=== PATIENT | female | born 1955 | race Two or more races ===

== ENCOUNTER 2019-11-04 16:46 | Emergency (ER) | payer OTHER ==
[~2019-11-04] VITALS: Ht 157.5 cm; Wt 65.4 kg
[2019-11-04] MEDS ORDERED: ONDANSETRON PF 4 MG/2 ML VIAL. IV ONE (17:15)
[2019-11-04] MEDS ORDERED: IV NORMAL SALINE 1000ML BAG 1,000 ML IV ONE (17:15)
[2019-11-04] MEDS ORDERED: fentaNYL PF VIAL 100 MCG/2 ML VIAL IV ONE (17:15)
[2019-11-04 17:17] LABS: BASO % 0 % (0-3); EOS # 0.1 x10^3/uL (0.0-0.7); EOS % 1 % (0-3); HEMOGLOBIN 14.3 g/dL (12.0-15.5); LYMPH # 2.7 x10^3/uL (1.0-4.8); LYMPH % 36 % (24-48); MEAN CORPUSCULAR HEMOGLOBIN 29 pg (25-35); MEAN CORPUSCULAR HGB CONC 35 g/dL (31-37); MEAN CORPUSCULAR VOLUME 84 fL (79-100); MONO # 1.5 x10^3/uL (0.0-1.1); MONO % 20 % (0-9); NEUT # 3.2 x10^3/uL (1.8-7.7); NEUT % 43 % (31-73); PLATELET COUNT 193 x10^3/uL (140-400); RED CELL DISTRIBUTION WIDTH 13.2 % (11.5-14.5); WHITE BLOOD COUNT 7.4 x10^3/uL (4.0-11.0)
[2019-11-04 17:19] LABS: BILIRUBIN,URINE NEGATIVE (NEG); CLARITY,URINE CLEAR; COLOR,URINE YELLOW; NITRITE,URINE NEGATIVE (NEG); PH,URINE 6.5 (<5.0-8.0); PROTEIN,URINE NEGATIVE (NEG-TRACE)
[2019-11-04 17:24] LABS: CALCIUM 8.9 mg/dL (8.5-10.1); CREATININE 0.8 mg/dL (0.6-1.0); POTASSIUM 3.5 mmol/L (3.5-5.1)
[2019-11-04 17:27] LABS: BACTERIA,URINE MODERATE /HPF (0-FEW); RBC,URINE 0 /HPF (0-2); SQUAMOUS EPITHELIAL CELL,UR MANY /LPF; WBC,URINE >40 /HPF (0-4)
[2019-11-04 17:30] LABS: ALBUMIN 4.2 g/dL (3.4-5.0); ALBUMIN/GLOBULIN RATIO 1.2 (1.0-1.7); MAGNESIUM 2.1 mg/dL (1.8-2.4); TOTAL BILIRUBIN 0.3 mg/dL (0.2-1.0); TOTAL PROTEIN 7.6 g/dL (6.4-8.2)
[2019-11-04] MEDS ORDERED: IOHEXOL 300 MG/ML 100ML VIAL. IV ONE (17:30)
--- NOTE | 2019-11-04 17:32 | PHYS DOC ---
Past Medical History Past Medical History: Diabetes-Type II Past Surgical History: Cholecystectomy, Other Additional Past Surgical Histo: left clavicle, L OVARY REMOVED Smoking Status: Never Smoker Alcohol Use: None General Adult EDM: Chief Complaint: ABDOMINAL PAIN HPI: HPI: Patient is a 64 year old female, accompanied by her family member, who presents to the ER with complaints of right lower quadrant pain that that began 5 days ago. Patient was seen at her doctor's office today and was sent into the emergency department to rule out appendicitis. Patient denies any fever, nausea , vomiting, diarrhea, dysuria, hematuria, increased urinary frequency, back pain, CVA tenderness, chest pain, applications, cough, shortness of breath, vaginal bleeding, or vaginal discharge. Patient's last bowel movement was this morning and it was normal, she denies any blood in her stool. Patient describes the pain as a constant sharp pain in her R lower abdomen and rates it 10 out of 10, patient has been taking naproxen at home with no relief of her symptoms. She reports that the pain is worse with palpation and rotation of her right leg. Review of Systems: Review of Systems: Constitutional: Denies fever or chills. [] Eyes: Denies change in visual acuity. [] HENT: Denies nasal congestion or sore throat. [] Respiratory: Denies cough or shortness of breath. [] Cardiovascular: Denies chest pain or edema. [] GI: Denies nausea, vomiting, bloody stools or diarrhea, see HPI. [] : Denies dysuria. [] Musculoskeletal: Denies back pain, CVA tenderness or joint pain. [] Integument: Denies rash. [] Neurologic: Denies headache, focal weakness or sensory changes. [] Lymphatic: Denies swollen glands. [] Psychiatric: Denies depression or anxiety. [] Heart Score: Risk Factors: Risk Factors: DM, Current or recent (<one month) smoker, HTN, HLP, family history of CAD, obesity. Risk Scores: Score 0 - 3: 2.5% MACE over next 6 weeks - Discharge Home Score 4 - 6: 20.3% MACE over next 6 weeks - Admit for Clinical Observation Score 7 - 10: 72.7% MACE over next 6 weeks - Early Invasive Strategies Current Medications: Current Medications Medications (Trade) Dose Ordered Sig/[place] Start Time Stop Time Status Last Admin Dose Admin Fentanyl Citrate (Fentanyl 2ml Vial) 50 mcg 1X ONCE 11/04/19 17:15 11/04/19 17:16 DC Ondansetron HCl (Zofran) 4 mg 1X ONCE 11/04/19 17:15 11/04/19 17:16 DC Sodium Chloride 1,000 ml @ 1,000 mls/hr 1X ONCE 11/04/19 17:15 11/04/19 18:14 Allergies: Allergies: Allergies Coded Allergies Type Severity Reaction Last Updated Verified No Known Drug Allergies 11/04/19 No Physical Exam: PE: Constitutional: Well developed, well nourished, no acute distress, non-toxic appearance. [] HENT: Normocephalic, atraumatic, bilateral external ears normal, nose normal. [] Eyes: PERRLA, EOMI, conjunctiva normal, no discharge. [] Neck: Normal range of motion, no stridor. [] Cardiovascular: Heart rate regular rhythm Lungs & Thorax: Lungs clear in all lew, respirations even and unlabored, no retractions, no respiratory distress Abdomen: soft, flat not distended. Bowel sounds are active in all 4 quadrants, right lower quadrant pain with palpation, no rebound tenderness, positive McBurney point tenderness, positive obturator sign, negative Psoas sign. Back: No CVA tenderness Skin: Warm, dry, no erythema, no rash. [] Extremities: No cyanosis, ROM intact, no edema. [] Neurologic: Alert and oriented X 3, no focal deficits noted. [] Psychologic: Affect normal, judgement normal, mood normal. [] Current Patient Data: Labs: Laboratory Tests Test 11/04/19 17:05 White Blood Count 7.4 x10^3/uL (4.0-11.0) Red Blood Count 4.90 x10^6/uL (3.50-5.40) Hemoglobin 14.3 g/dL (12.0-15.5) Hematocrit 41.0 % (36.0-47.0) Mean Corpuscular Volume 84 fL (79-100) Mean Corpuscular Hemoglobin 29 pg (25-35) Mean Corpuscular Hemoglobin Concent 35 g/dL (31-37) Red Cell Distribution Width 13.2 % (11.5-14.5) Platelet Count 193 x10^3/uL (140-400) Neutrophils (%) (Auto) 43 % (31-73) Lymphocytes (%) (Auto) 36 % (24-48) Monocytes (%) (Auto) 20 % (0-9) H Eosinophils (%) (Auto) 1 % (0-3) Basophils (%) (Auto) 0 % (0-3) Neutrophils # (Auto) 3.2 x10^3/uL (1.8-7.7) Lymphocytes # (Auto) 2.7 x10^3/uL (1.0-4.8) Monocytes # (Auto) 1.5 x10^3/uL (0.0-1.1) H Eosinophils # (Auto) 0.1 x10^3/uL (0.0-0.7) Basophils # (Auto) 0.0 x10^3/uL (0.0-0.2) Platelet Estimate Pending Laboratory Tests 11/04/19 17:05 Vital Signs: Vital Signs Date Time Temp Pulse Resp B/P (MAP) Pulse Ox O2 Delivery O2 Flow Rate FiO2 11/04/19 17:09 98.7 71 16 217/78 (124) 96 Room Air 98.7 EKG: EKG: [] Radiology/Procedures: Radiology/Procedures: PROCEDURE: CT ABD PELV W/ IV CONTRST ONLY PQRS Compliance Statement: One or more of the following individualized dose reduction techniques were utilized for this examination: 1. Automated exposure control 2. Adjustment of the mA and/or kV according to patient size 3. Use of iterative reconstruction technique CT abdomen/pelvis with contrast 11/04/2019 5:07 PM INDICATION: Right lower quadrant abdominal pain. COMPARISON: None available TECHNIQUE: Multiple axial CT images of the abdomen and pelvis were obtained after the intravenous administration of 75 mL Omnipaque 300. Coronal and sagittal reformats are provided. FINDINGS: There is a circumscribed hypoattenuating lesion in the right hepatic lobe, segment V measuring 2.1 cm with attenuation higher than that of simple fluid (24 Hounsfield units). This finding is indeterminate and could represent hemangioma in the absence of underlying malignancy. Spleen, bilateral adrenal glands and pancreas are normal in appearance. Gallbladder surgically absent. No intrahepatic or extra hepatic biliary ductal dilatation. Abdominal aorta is normal in course and caliber with mild calcified atheromatous plaque. No pathologically enlarged lymph nodes are identified in abdomen and pelvis. There is no free fluid or free intraperitoneal air. Mild colonic diverticulosis. No bowel obstruction or inflammation. Appendix is normal in appearance. Right kidney is normal position with normal appearance of the right ureter. 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 No definite hydronephrosis or renal calculi is identified. The superior right kidney there is a 8 mm cortical lesion along the posterior mid to inferior pole (series 2, image 36). This could represent a high attenuation cystic lesion versus solid renal mass. Urinary bladder is within normal limits given degree of distention. Uterus is present, although limited evaluation of morphology by CT. No suspicious adnexal mass. For the changes are identified in the right adnexa. No suspicious osseous abnormality. IMPRESSION: 1. 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 Consideration for CT urogram on a nonemergent basis may be of benefit. Next on 2. [place] right kidney is in normal position with an 8 mm posterior mid to inferior pole mass could represent a complicated cyst versus solid renal mass. Targeted sonographic evaluation versus renal mass protocol CT could be of benefit. No hydronephrosis. 3. No bowel obstruction or inflammation. 4. Hypoattenuating hepatic lesion in segment V could represent a hemangioma in the absence of underlying malignancy. Evaluation with ultrasound could be of benefit.[] Course & Med Decision Making: Course & Med Decision Making Pertinent Labs and Imaging studies reviewed. (See chart for details) Patient is reporting right lower quadrant pain, Work-up includes CBC, CMP, lipase, urinalysis, magnesium, and CT abdomen and pelvis with contrast to rule out appendicitis. 1L NS, Zofran for nausea, and fentanyl for pain. [CBC unremarkable; CMP reveals a glucose of 108 and an elevated BUN/creatinine ratio of 24 otherwise unremarkable; UA is concerning for urinary tract infection with greater than 40 white blood cells and moderate bacteria. The patient was given 1 g of IV Rocephin while in the emergency department, 1 L of normal saline, 4 mg of Zofran, and 50 mcg of fentanyl. She reported feeling better after these medications. The CT abdomen pelvis revealed an ectopic left kidney with suggestion of a pelvic kidney in the right mid to lower abdomen there was also a hypoattenuating possible hepatic lesion in segment 5 that might represent a hemangioma or poss ible underlying malignancy. I advised the patient of these abnormal findings and encouraged that she follow-up with her primary care doctor about the abnormal findings and possibly a urologist. A prescription was written for Keflex. The patient was encouraged to avoid bladder irritants and increase clear fluids. Return to the ER symptoms worsen or she develops a fever. Patient verbalized an understanding of home care, medications, follow-up, and return to ED instructions and was in agreement with the plan of care. Dragon Disclaimer: Dragon Disclaimer: This electronic medical record was generated, in whole or in part, using a voice recognition dictation system. Departure Departure Impression: Primary Impression: UTI (urinary tract infection) Qualified Codes: N39.0 - Urinary tract infection, site not specified Additional Impressions: Right lower quadrant abdominal pain Abnormal CT of the abdomen Referrals: NO PCP (PCP) Patient Instructions: Abdominal Pain (Nonspecific), Urinary Tract Infection, [id number] Additional Instructions: Fill prescription(s) and use as directed. Avoid bladder irritants such as caffeine, carbonation, and spicy foods. Increase clear fluids. Follow up with a primary care doctor for further evaluation of your abnormal CT findings and referral to a urologist. Return to the ER if your symptoms worsen or you develop a fever. Scripts Cephalexin (KEFLEX) 500 Mg Capsule 500 MG PO BID for 7 Days, #14 CAP 0 Refills Prov: PABLO LOPZE APRN 11/04/19 Justicifation of Admission Dx: Justifications for Admission: Justification of Admission Dx: N/A PABLO LOPEZ APRN Nov 04, 2019 17:32
[2019-11-04] MEDS ORDERED: CONTRAST GIVEN. MC PRN (17:45)
--- NOTE | 2019-11-04 18:02 | RAD ---
PQRS Compliance Statement: One or more of the following individualized dose reduction techniques were utilized for this examination: 1. Automated exposure control 2. Adjustment of the mA and/or kV according to patient size 3. Use of iterative reconstruction technique CT abdomen/pelvis with contrast 11/04/2019 5:07 PM INDICATION: Right lower quadrant abdominal pain. COMPARISON: None available TECHNIQUE: Multiple axial CT images of the abdomen and pelvis were obtained after the intravenous administration of 75 mL Omnipaque 300. Coronal and sagittal reformats are provided. FINDINGS: There is a circumscribed hypoattenuating lesion in the right hepatic lobe, segment V measuring 2.1 cm with attenuation higher than that of simple fluid (24 Hounsfield units). This finding is indeterminate and could represent hemangioma in the absence of underlying malignancy. Spleen, bilateral adrenal glands and pancreas are normal in appearance. Gallbladder surgically absent. No intrahepatic or extra hepatic biliary ductal dilatation. Abdominal aorta is normal in course and caliber with mild calcified atheromatous plaque. No pathologically enlarged lymph nodes are identified in abdomen and pelvis. There is no free fluid or free intraperitoneal air. Mild colonic diverticulosis. No bowel obstruction or inflammation. Appendix is normal in appearance. Right kidney is normal position with normal appearance of the right ureter. 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 No definite hydronephrosis or renal calculi is identified. The superior right kidney there is a 8 mm cortical lesion along the posterior mid to inferior pole (series 2, image 36). This could represent a high attenuation cystic lesion versus solid renal mass. Urinary bladder is within normal limits given degree of distention. Uterus is present, although limited evaluation of morphology by CT. No suspicious adnexal mass. For the changes are identified in the right adnexa. No suspicious osseous abnormality. IMPRESSION: 1. 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 Consideration for CT urogram on a nonemergent basis may be of benefit. Next on 2. [place] right kidney is in normal position with an 8 mm posterior mid to inferior pole mass could represent a complicated cyst versus solid renal mass. Targeted sonographic evaluation versus renal mass protocol CT could be of benefit. No hydronephrosis. 3. No bowel obstruction or inflammation. 4. Hypoattenuating hepatic lesion in segment V could represent a hemangioma in the absence of underlying malignancy. Evaluation with ultrasound could be of benefit. Electronically signed by: Kathleen Bustos MD (11/04/2019 5:59 PM) [facility]
[2019-11-04 18:26] LABS: % BANDS 4 % (0-9); % EOS 2 % (0-5); % LYMPHS 30 % (24-48); % MONOS 8 % (0-10); % SEGS 56 % (35-66)
[2019-11-04 18:28] LABS: PLT ESTIMATE ADEQUATE (ADEQUATE)
[2019-11-04] MEDS ORDERED: cefTRIAXone IV Push 1 GM VIAL. IVP ONE (19:15)
[2019-11-04 20:00] VITALS: BP 133/63
[2019-11-04] MEDS ORDERED: CEPH-264 PO (20:02)
== END 2019-11-04 20:36 | disposition home or self-care (01) ==
LOC: ER 16:46
DX: N39.0 Urinary tract infection, site not specified (principal); R10.32 Left lower quadrant pain; E11.9 Type 2 diabetes mellitus without complications; Z90.49 Acquired absence of other specified parts of digestive tract; Z98.890 Other specified postprocedural states
CPT/HCPCS: 36415; 74177; 80053; 81001; 83690; 83735; 85007; 85025; 87086; 96374; 96375; 99285; J0696; J2405; J3010; J7030; Q9967